=== PATIENT | female | born 1995 | race Caucasian/White ===

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

== ENCOUNTER 2018-10-21 11:43 | Emergency (ER) | payer OTHER ==
[2018-10-21 11:48] VITALS: BP 131/82; PULSE 76; TEMP 97.6; BMI 25.3
--- NOTE | 2018-10-21 11:49 | PDOC ---
Rapid Medical Evaluation Chief Complaint: Head/Neck problem Time Seen by Provider: 10/21/18 11:47 Medical Evaluation: Allergies Allergy/AdvReac Type Severity Reaction Status Date / Time ketorolac tromethamine Allergy Verified 10/21/18 11:45 [From Toradol] prunes Allergy Verified 10/21/18 11:45 10/21/18 11:47 I have performed a brief in-person evaluation of this patient. The patient presents with a chief complaint of: R sided neck and shoulder pain for 5 days after waking up, she thinks she slept the wrong way. Took advil the first day which did not help and applied cold compresses. Pertinent physical exam findings: Pt looks slightly uncomfortable, holding head st midline The patient will proceed to the ED for further evaluation. Discharge Disposition - Diagnosis Muscle spasm - Referrals - Patient Instructions - Post Discharge Activity
[2018-10-21] MEDS ORDERED: METHOCARBAMOL 500 MG TABLET PO ONE (12:08)
[2018-10-21] MEDS ORDERED: IBUPROFEN 600 MG TABLET (FP) PO ONE ×2 (12:08→12:12)
[2018-10-21] MEDS ORDERED: METHOCARBAMOL 500 MG TABLET ONE (12:12)
--- NOTE | 2018-10-21 12:14 | PDOC ---
History of Present Illness - General Chief Complaint: Head/Neck problem Stated Complaint: RT.SHOULDER/ NECK PAIN Time Seen by Provider: 10/21/18 11:47 History Source: Patient Exam Limitations: No Limitations - History of Present Illness Initial Comments: 10/21/18 12:21 23 yo F w/ no sig PMhx comes in c/o 5 days of R sided neck pain radiating to the R shoulder/RUE. She c/o occasional numbness/tingling, no numbness/tingling now, no weakness, no recent trauma/fall, no fever/chills, no NVD, no change in appetite, no decrease in urination. Pt says that she changed her pillow a month ago and she is not sure if it has anything to do with it. Pt too motrin the first day but it did not help much with pain, she also applied cold compresses which did not help. She is allergic to toradol but take ibuprofen PO without any issues. Past History - Past Medical History Allergies/Adverse Reactions: Allergies Allergy/AdvReac Type Severity Reaction Status Date / Time ketorolac tromethamine Allergy Verified 10/21/18 11:45 [From Toradol] prunes Allergy Verified 10/21/18 11:45 Home Medications: Ambulatory Orders Oxycodone HCl/Acetaminophen [Percocet 5-325 mg Tablet] 1 tab PO Q6H #10 tablet MDD 3 07/02/16 Ibuprofen 600 mg PO TID 3 Days #18 tablet 10/21/18 Methocarbamol [Robaxin-750] 750 mg PO TID 3 Days #18 tablet 10/21/18 COPD: No - Immunization History Immunization Up to Date: Yes - Suicide/Smoking/Psychosocial Hx Smoking History: Current some day smoker Information on smoking cessation initiated: No Hx Alcohol Use: No Drug/Substance Use Hx: Yes ([facility]) Review of Systems - Review of Systems Able to Perform ROS?: Yes Constitutional: No: Chills, Fever, Malaise, Night Sweats HEENTM: No: Eye Pain, Recent change in vision, Throat Pain Respiratory: No: Cough, Shortness of Breath Cardiac (ROS): No: Chest Pain, Palpitations, Chest Tightness ABD/GI: No: Diarrhea, Nausea, Vomiting, Abdominal cramping : No: Dysuria, Hematuria Musculoskeletal: Yes: Neck Pain. No: Back Pain Integumentary: No: Rash Neurological: No: Headache, Numbness, Dizziness Psychiatric: No: Change in Appetite Endocrine: No: Unexplained Weight Loss *Physical Exam - Vital Signs Last Vital Signs Temp Pulse Resp BP Pulse Ox 97.6 F 76 18 131/82 100 10/21/18 11:46 10/21/18 11:46 10/21/18 11:46 10/21/18 11:46 10/21/18 11:46 - Physical Exam General Appearance: Yes: Nourished. No: Apparent Distress HEENT: positive: DESMOND, Normal ENT Inspection, Normal Voice. negative: Pale Conjunctivae, Scleral Icterus (R), Scleral Icterus (L) Neck: positive: Decreased range of motion (slightly decreased with L rotation.) , Tender lateral ((+)R sided diffuse muscular tenderness with muscle spasm and tightness). negative: Tender midline Respiratory/Chest: positive: Lungs Clear, Normal Breath Sounds. negative: Respiratory Distress, Accessory Muscle Use Cardiovascular: positive: Regular Rhythm, Regular Rate Musculoskeletal: positive: Normal Inspection. negative: Decreased Range of Motion Extremity: positive: Normal Capillary Refill, Normal Inspection, Normal Range of Motion, Other (RUE with FROM, 5/5 strength, equal strength bilaterally, good pulses bilaterally, no assymetry. (+)diffuse tenderness to R shoulder muscles, non focal. No weakness.). negative: Pedal Edema Integumentary: positive: Normal Color, Dry. negative: Jaundice, Rash Neurologic: positive: Fully Oriented, Alert, Normal Mood/Affect Medical Decision Making - Medical Decision Making 10/21/18 12:37 23 yo F w. muscle spasm and radiculopathy pain. No weakness, NVI. Will give ibuprofen, robaxin and direct selling counselor to apply warm compresses, massage the area. She will follow up with her PMD in 2 days for reevaluation. Return for worsening/concerning symptoms Pt verbalizes understanding and agrees with plan. *DC/Admit/Observation/Transfer Diagnosis at time of Disposition: Muscle spasm - Discharge Dispostion Disposition: HOME Condition at time of disposition: Stable - Prescriptions Prescriptions: Ibuprofen 600 mg PO TID 3 Days #18 tablet Methocarbamol [Robaxin-750] 750 mg PO TID 3 Days #18 tablet - Referrals Referrals: Marvin Polo MD [Primary Care Provider] - - Patient Instructions Printed Discharge Instructions: DI for Cervical Radiculopathy, DI for Torticollis Additional Instructions: Please make a follow up appointment with your PMD in 2 days for reevaluation. Apply warm compresses as instructed. Return for worsening/concerning symptoms. - Post Discharge Activity Forms/Work/School Notes: Back to Work
== END 2018-10-21 12:32 | disposition home or self-care (01) ==
LOC: JERFT 11:43
DX: M54.12 Radiculopathy, cervical region (principal); M62.838 Other muscle spasm
CPT/HCPCS: 99282-25

== ENCOUNTER 2019-01-14 00:31 | Emergency (ER) | payer OTHER ==
[2019-01-14 01:10] VITALS: BMI 25.3
[2019-01-14] MEDS ORDERED: SODIUM CHLORIDE 1,000 ML IV STA (01:13)
[2019-01-14] MEDS ORDERED: ACETAMINOPHEN 1000 MG/100 ML VIAL (NON FORMULARY) IVPB ONE (01:13)
[2019-01-14] MEDS ORDERED: ONDANSETRON 4 MG/2 ML VIAL IVPUSH ONE (01:13)
[2019-01-14] MEDS ORDERED: ONDANSETRON 4 MG/2 ML VIAL ONE (01:31)
[2019-01-14] MEDS ORDERED: ACETAMINOPHEN INJECTION 100 ML IVPB ONE (01:31)
--- NOTE | 2019-01-14 01:31 | PDOC ---
Attending Attestation - Resident Resident Name: Miguelangel Soto - ED Attending Attestation I have performed the following: I have examined & evaluated the patient, The case was reviewed & discussed with the resident, I agree w/resident's findings & plan, Exceptions are as noted
[2019-01-14 01:39] LABS: BASO % 0.3 % (0-2.0); HEMATOCRIT 40.4 % (32.4-45.2); HEMOGLOBIN 13.4 GM/dL (10.7-15.3); LYMPH % 29.4 % (8-40); MCH 31.9 pg (25.7-33.7); MCHC 33.2 g/dl (32.0-36.0); MEAN PLT VOLUME 10.7 fl (7.5-11.1); MONO % 6.9 % (3.8-10.2); NEUT % 62.4 % (42.8-82.8); PLATELET COUNT 167 K/MM3 (134-434); RBC 4.21 M/mm3 (3.60-5.2); RDW 12.6 % (11.6-15.6); WHITE BLOOD COUNT 7.5 K/mm3 (4.0-10.0)
[2019-01-14 01:58] LABS: ALBUMIN 4.3 g/dl (3.4-5.0); BILIRUBIN,TOTAL 0.4 mg/dL (0.2-1); BLOOD UREA NITROGEN 11.2 mg/dL (7-18); CALCIUM 9.4 mg/dL (8.5-10.1); CREATININE 0.6 mg/dL (0.55-1.3); POTASSIUM 3.9 mmol/L (3.5-5.1); TOT PROT 7.4 g/dl (6.4-8.2)
[2019-01-14 01:59] LABS: EPI CELLS 1.9 /HPF (0-5/HPF); HYALINE CASTS 0 /lpf (0-8); URINE APPEARANCE CLEAR; URINE BACTERIA 114.6 /hpf (NEGATIVE); URINE BILIRUBIN NEGATIVE (NEGATIVE); URINE COLOR YELLOW; URINE GLUCOSE (UA) NEGATIVE (NEGATIVE); URINE KETONE 1+ (NEGATIVE); URINE LEUK ESTERASE NEGATIVE (NEGATIVE); URINE NITRITE NEGATIVE (NEGATIVE); URINE PROTEIN NEGATIVE (NEGATIVE); URINE RBC 2 /hpf (0-4); URINE UROBILINOGEN 0.2 mg/dL (0.2-1.0); URINE WBC 3 /hpf (0-5)
[2019-01-14 02:01] LABS: INR 1.03 (0.83-1.09); PROTHROMBIN TIME (PATIENT) 12.2 SEC (9.7-13.0)
[2019-01-14 02:04] LABS: ACTIVATED PTT 32.8 SECONDS (25.2-36.5)
--- NOTE | 2019-01-14 02:50 | PDOC ---
History of Present Illness - General Chief Complaint: Pain, Acute Stated Complaint: ABDOMINAL PAIN History Source: Patient Exam Limitations: No Limitations - History of Present Illness Initial Comments: 23 yo F with no past medical history presents to the emergency department with bilateral lower abdominal pain with vaginal discharge for 2 days. Per the patient, she states the pain began gradually. Described as cramping like sensation without radiation without aggravating or relieving factors. Per the patient, she had vaginal discharge since yesterday. Described as a pink consistency with purulence characterization. Denies the following: fever, chills , SOB, chest pain, diarrhea, hematochezia, dysuria, hematuria, and melena. States she had an IUD placed 1 month ago at [facility]. LMP 2 weeks ago. Allergies: keterolac Social: Endorses tobacco, alcohol, and marijuana use. Past History - Past Medical History Allergies/Adverse Reactions: Allergies Allergy/AdvReac Type Severity Reaction Status Date / Time ketorolac tromethamine Allergy Verified 01/14/19 01:41 [From Toradol] prunes Allergy Verified 01/14/19 01:41 Home Medications: Ambulatory Orders Doxycycline Hyclate 100 mg PO BID 14 Days #28 capsule 01/14/19 Metronidazole 500 mg PO BID 14 Days #28 tablet 01/14/19 COPD: No - Reproductive History Is Patient Now?: No - Immunization History Immunization Up to Date: Yes - Psycho Social/Smoking Cessation Hx Smoking History: Current some day smoker Have you smoked in the past 12 months: Yes Number of Cigarettes Smoked Daily: 5 Information on smoking cessation initiated: Yes Hx Alcohol Use: Yes (occasionally) Drug/Substance Use Hx: Yes (marijuana) Review of Systems - Review of Systems Able to Perform ROS?: Yes Is the patient limited Ugandan proficient: No Constitutional: No: Chills, Diaphoresis HEENTM: No: Eye Pain, Ear Pain, Nose Pain, Throat Pain, Mouth Pain Respiratory: No: Cough, Shortness of Breath, Hemoptysis Cardiac (ROS): No: Chest Pain, Edema, Lightheadedness, Syncope ABD/GI: Yes: Abdominal cramping. No: Constipated, Diarrhea, Nausea, Rectal Bleeding, Vomiting, Tarry Stools : Yes: Other (vaginal discharge). No: Burning, Dysuria, Hematuria, Incontinence Musculoskeletal: No: Back Pain, Joint Pain Integumentary: No: Bruising, Erythema, Rash Neurological: No: Headache, Numbness Psychiatric: No: Stressors Endocrine: No: Unexplained Weight Gain Hematologic/Lymphatic: No: Anemia *Physical Exam - Vital Signs Last Vital Signs Temp Pulse Resp BP Pulse Ox 98.1 F 87 18 129/91 100 01/14/19 00:55 01/14/19 00:55 01/14/19 00:55 01/14/19 00:55 01/14/19 00:55 - Physical Exam General Appearance: Yes: Nourished, Appropriately Dressed. No: Apparent Distress, Intoxicated HEENT: positive: EOMI, DESMOND, Normal ENT Inspection, Normal Voice, Symmetrical, TMs Normal, Pharynx Normal, Hearing Grossly Normal. negative: Excessive drooling Neck: positive: Trachea midline, Supple. negative: Tender, Lymphadenopathy (R) , Lymphadenopathy (L), Tender lateral, Tender midline Respiratory/Chest: positive: Lungs Clear, Normal Breath Sounds. negative: Chest Tender, Respiratory Distress, Accessory Muscle Use, Rhonchi, Stridor, Wheezing Cardiovascular: positive: Regular Rhythm, Regular Rate, S1, S2. negative: Systolic Murmur Female Pelvic Exam: positive: normal external exam, cervical os closed, CMT, other (vaginal discharge purulent in consistency. pink in color.) Gastrointestinal/Abdominal: positive: Normal Bowel Sounds, Tender (RLQ, midline , and LLQ tenderness), Flat, Soft Lymphatic: negative: Adenopathy Musculoskeletal: positive: Normal Inspection. negative: CVA Tenderness, Vertebral Tenderness Extremity: positive: Normal Capillary Refill, Normal Inspection, Normal Range of Motion. negative: Tender, Swelling, Calf Tenderness Integumentary: positive: Normal Color, Dry, Warm Neurologic: positive: Fully Oriented, Alert, Normal Mood/Affect ED Treatment Course - LABORATORY CBC & Chemistry Diagram: 01/14/19 01:15 01/14/19 01:15 - ADDITIONAL ORDERS Additional order review: Laboratory Results 01/14/19 01/14/19 01/14/19 01:20 01:15 01:15 PT with INR 12.20 INR 1.03 PTT (Actin FS) 32.8 Cancelled Sodium Potassium Chloride Carbon Dioxide Anion Gap BUN Creatinine Est GFR (CKD-EPI)AfAm Est GFR (CKD-EPI)NonAf Random Glucose Calcium Total Bilirubin AST ALT Alkaline Phosphatase Total Protein Albumin Serum , Qual Urine Color Yellow Urine Appearance Clear Urine pH 8.0 Ur Specific Mammoth 1.018 Urine Protein Negative Urine Glucose (UA) Negative Urine Ketones 1+ H Urine Blood Trace Urine Nitrite Negative Urine Bilirubin Negative Urine Urobilinogen 0.2 Ur Leukocyte Esterase Negative Urine WBC (Auto) 3 Urine RBC (Auto) 2 Urine Casts (Auto) 0 U Epithel Cells (Auto) 1.9 Urine Bacteria (Auto) 114.6 01/14/19 01/14/19 01:15 01:15 PT with INR INR PTT (Actin FS) Sodium 139 Potassium 3.9 Chloride 106 Carbon Dioxide 26 Anion Gap 7 L BUN 11.2 Creatinine 0.6 Est GFR (CKD-EPI)AfAm 151.01 Est GFR (CKD-EPI)NonAf 130.29 Random Glucose 86 Calcium 9.4 Total Bilirubin 0.4 AST 15 ALT 17 Alkaline Phosphatase 52 Total Protein 7.4 Albumin 4.3 Serum , Qual Negative Urine Color Urine Appearance Urine pH Ur Specific Mammoth Urine Protein Urine Glucose (UA) Urine Ketones Urine Blood Urine Nitrite Urine Bilirubin Urine Urobilinogen Ur Leukocyte Esterase Urine WBC (Auto) Urine RBC (Auto) Urine Casts (Auto) U Epithel Cells (Auto) Urine Bacteria (Auto) 01/14/19 01:15 RBC 4.21 MCV 96.0 MCHC 33.2 RDW 12.6 MPV 10.7 Neutrophils % 62.4 Lymphocytes % 29.4 Monocytes % 6.9 Eosinophils % 1.0 Basophils % 0.3 - Medications Given in the ED: ED Medications Discontinued Medications Generic Name Dose Route Start Last Admin Trade Name Freq PRN Reason Stop Dose Admin Acetaminophen 1,000 mg 01/14/19 01:13 01/14/19 01:40 Ofirmev Injection - IVPB 01/14/19 01:14 1,000 mg ONCE ONE Administration Sodium Chloride 1,000 mls @ 1,000 mls/hr 01/14/19 01:13 01/14/19 01:40 Normal Saline - IV 01/14/19 02:12 1,000 mls/hr ASDIR STA Administration Ondansetron HCl 4 mg 01/14/19 01:13 01/14/19 01:40 Zofran Injection IVPUSH 01/14/19 01:14 4 mg ONCE ONE Administration Medical Decision Making - Medical Decision Making 23 yo F with no past medical history presents to the emergency department with bilateral lower abdominal pain with vaginal discharge for 2 days. Initial vitals; Initial Vital Signs Temp Pulse Resp BP Pulse Ox 98.1 F 87 18 129/91 100 01/14/19 00:55 01/14/19 00:55 01/14/19 00:55 01/14/19 00:55 01/14/19 00:55 Work up: appendicitis vs cervicitis vs UTI vs nephrolithiasis vs pID Will obtain TVUS with cbc, cmp, bhcg, ua, urine culture Laboratory Tests 01/14/19 01/14/19 01/14/19 01:15 01:15 01:15 WBC 7.5 RBC 4.21 Hgb 13.4 Hct 40.4 MCV 96.0 MCH 31.9 MCHC 33.2 RDW 12.6 Plt Count 167 MPV 10.7 Absolute Neuts (auto) 4.7 Neutrophils % 62.4 Lymphocytes % 29.4 Monocytes % 6.9 Eosinophils % 1.0 Basophils % 0.3 Nucleated RBC % 0 PT with INR INR PTT (Actin FS) Sodium 139 Potassium 3.9 Chloride 106 Carbon Dioxide 26 Anion Gap 7 L BUN 11.2 Creatinine 0.6 Est GFR (CKD-EPI)AfAm 151.01 Est GFR (CKD-EPI)NonAf 130.29 Random Glucose 86 Calcium 9.4 Total Bilirubin 0.4 AST 15 ALT 17 Alkaline Phosphatase 52 Total Protein 7.4 Albumin 4.3 Serum , Qual Negative Urine Color Urine Appearance Urine pH Ur Specific Mammoth Urine Protein Urine Glucose (UA) Urine Ketones Urine Blood Urine Nitrite Urine Bilirubin Urine Urobilinogen Ur Leukocyte Esterase Urine WBC (Auto) Urine RBC (Auto) Urine Casts (Auto) U Epithel Cells (Auto) Urine Bacteria (Auto) 01/14/19 01/14/19 01/14/19 01:15 01:15 01:20 WBC RBC Hgb Hct MCV MCH MCHC RDW Plt Count MPV Absolute Neuts (auto) Neutrophils % Lymphocytes % Monocytes % Eosinophils % Basophils % Nucleated RBC % PT with INR 12.20 INR 1.03 PTT (Actin FS) Cancelled 32.8 Sodium Potassium Chloride Carbon Dioxide Anion Gap BUN Creatinine Est GFR (CKD-EPI)AfAm Est GFR (CKD-EPI)NonAf Random Glucose Calcium Total Bilirubin AST ALT Alkaline Phosphatase Total Protein Albumin Serum , Qual Urine Color Yellow Urine Appearance Clear Urine pH 8.0 Ur Specific Mammoth 1.018 Urine Protein Negative Urine Glucose (UA) Negative Urine Ketones 1+ H Urine Blood Trace Urine Nitrite Negative Urine Bilirubin Negative Urine Urobilinogen 0.2 Ur Leukocyte Esterase Negative Urine WBC (Auto) 3 Urine RBC (Auto) 2 Urine Casts (Auto) 0 U Epithel Cells (Auto) 1.9 Urine Bacteria (Auto) 114.6 labs within normal limits. negative TVUS shows moderate free fluid in the cul-de-sac. A CT abdomen and pelvis with contrast was obtained. the patient has no acute intra-abdominal pathologies save for the free fluid in the abdomen. A call was placed to the patient's OBGYN physician (Dr. Hurt) who stated the patient can be followed up in her office tomorrow at 9am. The patient will receive 250 mg of ceftriaxone, doxyxycline, and metronidazole. the moderate free fluid likely secondary to ovarian cyst rupture (no known cyst prior) Patient was reassessed. her pain resolved significantly. She was able to ambulate on her own volition. Discharge - Discharge Information Problems reviewed: Yes Clinical Impression/Diagnosis: Pelvic inflammatory disease Condition: Improved Disposition: HOME - Admission No - Additional Discharge Information Prescriptions: Doxycycline Hyclate 100 mg PO BID 14 Days #28 capsule Metronidazole 500 mg PO BID 14 Days #28 tablet - Follow up/Referral Referrals: Marvin Polo MD [Primary Care Provider] - Taylor Hurt DO [Staff Physician] - - Patient Discharge Instructions Patient Printed Discharge Instructions: DI for Pelvic Inflammatory Disease, DI for Ovarian Cyst Additional Instructions: You were seen in the emergency department for the evaluation of your lower abdominal pain and vaginal discharge. Please follow up with Dr. Hurt IN THE MORNING 01/14/2019. Please call them to be seen. Please take the antibiotics as prescribed. Please return to the emergency department if you have worsening symptoms or new concerning symptoms. Thank you. - Post Discharge Activity Work/Back to School Note: Back to Work
[2019-01-14] MEDS ORDERED: metroNIDAZOLE 250 MG TABLET PO ONE (03:55)
[2019-01-14] MEDS ORDERED: DOXYCYCLINE HYCLATE 100 MG CAPSULE PO ONE ×2 (03:55→04:14)
[2019-01-14] MEDS ORDERED: metroNIDAZOLE 250 MG TABLET ONE (04:13)
[2019-01-14] MEDS ORDERED: cefTRIAXone SODIUM 1 GM VIAL ONE (04:14)
[2019-01-14 04:31] VITALS: BP 113/57; PULSE 66; TEMP 98.3
== END 2019-01-14 04:31 | disposition home or self-care (01) ==
LOC: JER 00:31
PROC: 3E033NZ Introduction of Analgesics, Hypnotics, Sedatives into Peripheral Vein, Percutaneous Approach (ICD-10-PCS; principal; 2019-01-14)
PROC: 3E033GC Introduction of Other Therapeutic Substance into Peripheral Vein, Percutaneous Approach (ICD-10-PCS; 2019-01-14)
PROC: 3E03329 Introduction of Other Anti-infective into Peripheral Vein, Percutaneous Approach (ICD-10-PCS; 2019-01-14)
DX: N73.9 Female pelvic inflammatory disease, unspecified (principal); Z91.018 Allergy to other foods; Z88.6 Allergy status to analgesic agent
CPT/HCPCS: 36415; 74177-TC; 76830-TC; 80053; 81003; 84703; 85025; 85610; 85730; 87081; 87086; 87491; 87591; 96374; 96375; 99283-25; J0131; J7030

== ENCOUNTER 2019-01-23 18:01 | Emergency (ER) | payer OTHER ==
[2019-01-23 18:04] VITALS: BP 107/52; PULSE 92; TEMP 98.2; BMI 25.3
[2019-01-23 19:16] LABS: HEMATOCRIT 38.8 % (32.4-45.2); HEMOGLOBIN 13.5 GM/dL (10.7-15.3); MCHC 34.7 g/dl (32.0-36.0); MEAN PLT VOLUME 9.8 fl (7.5-11.1); PLATELET COUNT 247 K/MM3 (134-434); RBC 4.08 M/mm3 (3.60-5.2); RDW 12.7 % (11.6-15.6); WHITE BLOOD COUNT 7.5 K/mm3 (4.0-10.0)
[2019-01-23 19:19] LABS: EPI CELLS 2.7 /HPF (0-5/HPF); HYALINE CASTS 4 /lpf (0-8); PH,URINE 5.5 (5.0-8.0); URINE APPEARANCE CLEAR; URINE BACTERIA 11.7 /hpf (NEGATIVE); URINE BILIRUBIN NEGATIVE (NEGATIVE); URINE COLOR YELLOW; URINE GLUCOSE (UA) NEGATIVE (NEGATIVE); URINE KETONE TRACE (NEGATIVE); URINE LEUK ESTERASE NEGATIVE (NEGATIVE); URINE NITRITE NEGATIVE (NEGATIVE); URINE PROTEIN NEGATIVE (NEGATIVE); URINE RBC 4 /hpf (0-4); URINE UROBILINOGEN 0.2 mg/dL (0.2-1.0); URINE WBC 1 /hpf (0-5)
--- NOTE | 2019-01-23 20:11 | PDOC ---
History of Present Illness - General Chief Complaint: Vaginal Bleeding Stated Complaint: VAGINAL BLEEDING Time Seen by Provider: 01/23/19 19:25 History Source: Patient Exam Limitations: No Limitations - History of Present Illness Initial Comments: 01/23/19 20:04 Patient is a 23-year-old female with no past medical history here with complaints of vaginal bleeding x10 days. Patient was seen on 01/14/2019 for similar complaints and had a complete work-up which included ultrasound and CT scan of the abdomen which showed ovarian cysts. Patient had an IUD at the time and was diagnosed with PID and put on antibiotics. She also followed up with [facility] and had the IUD removed. She is feeling somewhat improved, however, she continues to have some pressure in the suprapubic area her persistent bleeding. States she is changing 8 pads per day. She denies fever, chills, dizziness, weakness. COMPLEX CASE MANAGER: Blu PMHX: as above PSOCHX: neg etoh, drug, cig ALL: NKDA GENERAL/CONSTITUTIONAL: [No fever or chills. No weakness. No weight change.] HEAD, EYES, EARS, NOSE AND THROAT: [No change in vision. No ear pain or discharge. No sore throat.] CARDIOVASCULAR: [No chest pain or shortness of breath.] RESPIRATORY: [No cough, wheezing, or hemoptysis.] GASTROINTESTINAL: [No nausea, vomiting, diarrhea or constipation. No rectal bleeding.] GENITOURINARY: [No dysuria, frequency, or change in urination.] MUSCULOSKELETAL: [No joint or muscle swelling or pain. No neck or back pain.] SKIN AND BREASTS: [No rash or easy bruising.] NEUROLOGIC: [No headache, vertigo, loss of consciousness, or loss of sensation.] PSYCHIATRIC: [No depression or anxiety.] ENDOCRINE: [No increased thirst. No abnormal weight change.] HEMATOLOGIC/LYMPHATIC: [No anemia, easy bleeding, or history of blood clots.] ALLERGIC/IMMUNOLOGIC: [No hives or skin allergy. No latex allergy.] GENERAL: [The patient is awake, alert, and fully oriented, in no acute distress. ] HEAD: [Normal with no signs of trauma.] EYES: [Pupils equal, round and reactive to light, extraocular movements intact, sclera anicteric, conjunctiva clear.] ENT: [Ears normal, nares patent, oropharynx clear without exudates. Moist mucous membranes.] NECK: [Normal range of motion, supple without lymphadenopathy, JVD, or masses.] LUNGS: [Breath sounds equal, clear to auscultation bilaterally. No wheezes, and no crackles.] HEART: [Regular rate and rhythm, normal S1 and S2 without murmur, rub.] ABDOMEN: [Soft, mild suprapubic tenderness, normoactive bowel sounds. No guarding, no rebound. No masses.] PELVIC: normal external genitalia, moderate amount of dark blood in the vault, no clots, os closed, no CMT, no adnexal tenderness EXTREMITIES: [Normal range of motion, no edema. No clubbing or cyanosis. No cords, erythema, or tenderness.] NEUROLOGICAL: [Cranial nerves II through XII grossly intact. Normal speech, normal gait.] PSYCH: [Normal mood, normal affect.] SKIN: [Warm, Dry, normal turgor, no rashes or lesions noted.] Past History - Past Medical History Allergies/Adverse Reactions: Allergies Allergy/AdvReac Type Severity Reaction Status Date / Time ketorolac tromethamine Allergy Verified 01/23/19 18:04 [From Toradol] prunes Allergy Verified 01/23/19 18:04 Home Medications: Ambulatory Orders Doxycycline Hyclate 100 mg PO BID 14 Days #28 capsule 01/14/19 Metronidazole 500 mg PO BID 14 Days #28 tablet 01/14/19 COPD: No - Immunization History Immunization Up to Date: Yes - Psycho Social/Smoking Cessation Hx Smoking History: Never smoked Have you smoked in the past 12 months: Yes Number of Cigarettes Smoked Daily: 5 Hx Alcohol Use: Yes (occasionally) Drug/Substance Use Hx: Yes (marijuana) *Physical Exam - Vital Signs Last Vital Signs Temp Pulse Resp BP Pulse Ox 98.2 F 92 H 18 107/52 L 100 01/23/19 18:02 01/23/19 18:02 01/23/19 18:02 01/23/19 18:02 01/23/19 18:02 ED Treatment Course - LABORATORY CBC & Chemistry Diagram: 01/23/19 19:00 - ADDITIONAL ORDERS Additional order review: Laboratory Results 01/23/19 01/23/19 19:00 19:00 Serum , Qual Negative Urine Color Yellow Urine Appearance Clear Urine pH 5.5 D Ur Specific [place] 1.029 Urine Protein Negative Urine Glucose (UA) Negative Urine Ketones Trace H Urine Blood 1+ H Urine Nitrite Negative Urine Bilirubin Negative Urine Urobilinogen 0.2 Ur Leukocyte Esterase Negative Urine WBC (Auto) 1 Urine RBC (Auto) 4 Urine Casts (Auto) 4 U Epithel Cells (Auto) 2.7 Urine Bacteria (Auto) 11.7 01/23/19 19:00 RBC 4.08 MCV 95.0 MCHC 34.7 RDW 12.7 MPV 9.8 Medical Decision Making - Medical Decision Making 01/23/19 20:04 Patient is a 23-year-old female with no past medical history here with complaints of vaginal bleeding x10 days. Patient was seen on 01/14/2019 for similar complaints and had a complete work-up which included ultrasound and CT scan of the abdomen which showed ovarian cysts. Patient had an IUD at the time and was diagnosed with PID and put on antibiotics. She also followed up with [facility] CASE MANAGER and had the IUD removed. She is feeling somewhat improved, however, she continues to have some pressure in the suprapubic area her persistent bleeding. States she is changing 8 pads per day. She denies fever, chills, dizziness, weakness. Symptoms consistent with dysfunctional uterine bleeding secondary to removal of IUD. Labs which include CBC to check H&H Reassure and refer patient back to [facility] CASE [facility]NAGER. I discussed the physical exam findings, ancillary test results and final diagnoses with the patient. I answered all of the patient's questions. The patient was satisfied with the care received and felt comfortable with the discharge plan and treatment plan. The Patient agrees to follow up with the primary care physician within 24-72 hours. Discharge - Discharge Information Problems reviewed: Yes Clinical Impression/Diagnosis: Dysfunctional uterine bleeding Condition: Stable Disposition: HOME - Follow up/Referral Referrals: Marvin Polo MD [Primary Care Provider] - Taylor Hurt DO [Staff Physician] - - Patient Discharge Instructions Patient Printed Discharge Instructions: DI for Vaginal Bleeding Additional Instructions: Your Discharge Instructions: You must call primary care physician within 24 hours to arrange follow-up. Return to the Emergency Department with any new, persistent or worsening symptoms, for fever, chills, SOB, dizziness or any other concerning changes that may occur. He was follow-up with COMPLEX CASE MANAGER if your bleeding is persistent or bleeding more than 1 pad an hour. There is no change in your hematocrit and hemoglobin today, therefore no acute intervention is needed at this time. - Post Discharge Activity Work/Back to School Note: Back to Work
== END 2019-01-23 20:21 | disposition home or self-care (01) ==
LOC: JER 18:01
DX: N93.8 Other specified abnormal uterine and vaginal bleeding (principal); Z91.018 Allergy to other foods; Z88.8 Allergy status to other drugs, medicaments and biological substances
CPT/HCPCS: 36415; 81003; 84703; 85027; 87086; 99282-25